=== PATIENT | male | born 1965 | race Hispanic/Latino ===

== ENCOUNTER 2017-04-15 04:42 | Inpatient (IN) | payer BC ==
[2017-04-15 04:58] VITALS: O2SAT 96
--- NOTE | 2017-04-15 05:04 | C.PDOC ---
History Of Present Illness 51 yo male, hx of etoh abuse, presents as transfer for pyschiatric admission. pt medically cleared and accepted prior to arrival. pt was depression with si. at this time denies complaints. Time Seen by Provider: 04/15/17 04:44 Chief Complaint (Nursing): Psychiatric Evaluation Past Medical History Reviewed: Historical Data, Nursing Documentation, Vital Signs Vital Signs: Last Vital Signs Temp 97.7 F 04/15/17 04:52 Pulse 86 04/15/17 04:52 Resp 14 04/15/17 04:52 BP 141/90 04/15/17 04:52 Pulse Ox 96 04/15/17 05:11 - Medical History PMH: Anxiety, Depression Family History: States: Unknown Family Hx - Social History Hx Alcohol Use: Yes Hx Substance Use: No - Immunization History Hx Tetanus Toxoid Vaccination: No Hx Influenza Vaccination: No Hx Pneumococcal Vaccination: No Review Of Systems Except As Marked, All Systems Reviewed And Found Negative. Psych: Positive for: Depression Physical Exam - Physical Exam Appears: Well, No Acute Distress, Other (drinking soda) Skin: Normal Color, Warm, Dry Eye(s): bilateral: Normal Inspection, PERRL, EOMI Nose: Normal Throat: Normal Neck: Normal Cardiovascular: Rhythm Regular Respiratory: Normal Breath Sounds Gastrointestinal/Abdominal: Normal Exam, Soft, No Tenderness, No Guarding, No Rebound Rectal: Deferred Back: Normal Inspection Extremity: Normal ROM Neurological/Psych: Oriented x3, Normal Speech, Normal Cognition, Normal Cranial Nerves, Normal Motor, Normal Sensation ED Course And Treatment O2 Sat by Pulse Oximetry: 96 Medical Decision Making Medical Decision Making: medically cleared and accepted [facility]. Disposition - Disposition Disposition: HOSPITALIZED Disposition Time: 05:03 Condition: STABLE Forms: [employer] ([place]) - Clinical Impression Clinical Impression: Major depression Decision To Admit - Pt Status Changed To: Hospital Disposition Of: Inpatient - Admit Certification Admit to Inpatient:: After my assessment, the patient will require hospitalization for at least two midnights. This is because of the severity of symptoms shown, intensity of services needed, and/or the medical risk in this patient being treated as an outpatient. - InPatient: Physician Admission Certification: I certify that this patient requires 2 or more midnights of care for the following reason:: pt wiht major dpression si, needs inpt pysch - . Bed Request Type: Psychiatry Admitting Physician: Kristy Baltazar Patient Diagnosis: Major depression
--- NOTE | 2017-04-15 07:11 | PCM.BM ---
<Ruth Richardson - Last Filed: 04/15/17 07:10> Treatment assets and liabiliti Patient Assests: adapts well, cooperative, educated, insightful, motivated, resourceful, self-reliant, ADL independent, physically healthy, good support system, negotiates basic needs, good past tx response, cognitively intact Patient Liabilities: substance abuse - Milieu Protocol Maintain good personal hygiene: daily Encourage regular showers, daily Remind patient to perform daily oral care, daily Assist patient to perform ADL's Maintain personal safety: every shift Monitor environment for contraband/sharps , other Educate patient to report safety concerns to staff (prn) Medication safety: Monitor for expected outcome, potential side effects: every shift, Assess barriers to learning: every shift, Assess readiness for medication education: every shift <Анна Jones - Last Filed: 04/16/17 10:48> Family Contact Family involvement: Family/SO is involved Family contact: Patient agrees to contact Family contact name: Juliann Liang- Family contacted how many times per week?: 2 - Goals for Treatment Patient goals for treatment: "I want to go home." Discharge/Continuing Care - Education Needs Education Needs: Patient Medication, Patient Coping Skills, Patient Placement options, Patient Community resources - Discharge Discharge Criteria: Tolerates medication w/o severe side effects, No longer exhibiting s/s of withdrawal, Reduction of target symptoms Discharge to:: Home, With Family - Treatment Team Participation Discussed with Family/SO: Yes Was Patient/Family/SO present at Treatment Team Meeting: Yes <Xiomara Best - Last Filed: 04/16/17 14:21> Treatment assets and liabiliti Patient Assests: adapts well Patient Liabilities: other - Milieu Protocol Maintain good personal hygiene: every shift Encourage regular showers, every shift Remind patient to perform daily oral care, every shift Assist patient to perform ADL's Maintain personal safety: every shift Educate patient to report safety concerns to staff, every shift Monitor environment for contraband/sharps Medication safety: Monitor for expected outcome, potential side effects: daily, Assess barriers to learning: daily, Assess readiness for medication education: daily <Warner Quinones - Last Filed: 04/16/17 17:33> - Diagnosis (1) Major depressive disorder, recurrent Status: Acute Interventions: 04/16/17 17:32 Assess/adjust medications daily and/or as needed See patient on an individual basis 7x/week to assess status of psychiatric symptoms/depression Discussed risks, benefits, side effects and alternatives of medications. (2) Alcohol use disorder Status: Acute Interventions: 04/16/17 17:32 Assess 7x/week regarding severity of withdrawal Educate regarding risks, benefits, side effects and alternatives of medications Used motivational interviewing for abstinence Use CBT for relapse prevention Medication management for withdrawal symptoms Encourage medication assisted treatment
[2017-04-15] MEDS: Multiple Vitamins Tab PO SCH (10:16)
[2017-04-15] MEDS: buPROPion 150 mg/24 Hours XL Tab PO SCH (10:17)
[2017-04-15 10:33] LABS: HEMATOCRIT 46.1 % (35.0-51.0); MEAN CELL VOLUME 88.6 fL (80.0-94.0); MEAN CORPUSCULAR HEMOGLOBIN 31.1 pg (27.0-31.0); MEAN CORPUSCULAR HGB CONC 35.1 g/dL (33.0-37.0); MEAN PLATELET VOLUME 7.1 fL (7.2-11.7); RED CELL DISTRIBUTION WIDTH 12.4 % (11.5-14.5); WHITE BLOOD COUNT 7.6 K/uL (4.8-10.8)
[2017-04-15 10:41] LABS: CHLORIDE 98 mmol/L (98-107)
[2017-04-15 10:42] LABS: SODIUM 136 mmol/L (132-148)
[2017-04-15 10:44] LABS: CARBON DIOXIDE 21 mmol/L (22-30); CHOLESTEROL 105 mg/dL (0-199); GFR AFRICAN-AMERICAN > 60
[2017-04-15 10:45] LABS: BLOOD UREA NITROGEN 16 mg/dL (9-20); CALCIUM 8.8 mg/dl (8.6-10.4); GLUCOSE,RANDOM 137 mg/dL (75-110)
[2017-04-15 11:10] LABS: FREE T4 0.99 ng/dL (0.78-2.19)
[2017-04-15 11:24] LABS: THYROID STIMULATING HORMONE 0.71 mIU/L (0.46-4.68)
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
[2017-04-16] MEDS: buPROPion 150 mg/24 Hours XL Tab PO SCH (09:52)
[2017-04-16] MEDS: Multiple Vitamins Tab PO SCH (09:52)
--- NOTE | 2017-04-16 17:36 | PCM.PYCHPN ---
Psychiatric Progress Note - Psychiatric Progress Note Patient seen today, length of contact: 15 minutes Patient Chief Complaint: I'm feeling much better Problems Identified/Issues Discussed: Patient seen. Chart reviewed. Case discussed with the staff. Issues related to illness and treatment were discussed with the patient. Reported compliant with treatment with no adverse affects. Tolerating treatment very well. Reported feeling much better with very mild withdrawal symptoms. Better mood. At the time of evaluation, patient was awake alert oriented 3, had no delusions , no auditory or visual hallucinations, no suicidal ideations or homicidal ideation. Medical Problems: None reported Diagnostic Results: Reviewed DSM 5 Symptoms Update: Improving with treatment Medication Change: No Medical Record Reviewed: Yes Mental Status Examination - Cognitive Function Orientation: Person, Place, Situation, Time Memory: Intact Attention: WNL Concentration: WNL Association: WN Fund of Knowledge: [facility] Decription of patient's judgement and insights: Fair - Mood Mood: Neutral - Affect Affect: Other (Appropriate) - Speech Speech: Appropriate - Formal Thought Process Formal Thought Process: No Impairment Psychotic Thoughts and Behaviors: None - Suicidal Ideation Suicidal Ideation: No - Homicidal Ideation Homicidal Ideation: No Goal/Treatment Plan - Goal/Treatment Plan Need for Continued Stay: Remain at risks for inpatient hospitalization, Discharge may exacerbated symptoms, Severe functional impairment Progress Toward Problem(s) and Goals/Treatment Plan: Patient education Supportive therapy Continue treatment as before. Estimated Date of D/C: 04/17/17 - Smoking Cessation Smoking Cessation Initiated: No
[2017-04-17] MEDS: Multiple Vitamins Tab PO SCH (09:27)
[2017-04-17] MEDS: buPROPion 150 mg/24 Hours XL Tab PO SCH (09:28)
[2017-04-17 09:29] VITALS: BP 128/80; PULSE 91; RESP 20; TEMP 97.2
[2017-04-17] MEDS ORDERED: Influenza Vaccine 60 mcg/0.5 mL SYR (4YR UP) IM ONE (10:30)
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
== END 2017-04-17 13:55 | disposition home or self-care (01) | DRG 885 ==
LOC: C.ER 04:42 → C.5E 05:00
PROVIDERS: ADMIT Psychiatry & Neurology Psychiatry; ATTEND Psychiatry & Neurology Psychiatry
DX: F33.2 Major depressive disorder, recurrent severe without psychotic features (principal); R45.851 Suicidal ideations; F10.239 Alcohol dependence with withdrawal, unspecified; G47.00 Insomnia, unspecified

== ENCOUNTER 2018-01-09 21:16 | Inpatient (IN) | payer BC ==
--- NOTE | 2018-01-09 21:46 | C.PDOC ---
History Of Present Illness 52 y/o male presents to ED requesting ETOH detox, states he has been drinking heavily for the past 4 days. Patient last detox in May of 2017 and states he fell off. Patient denies SI/HI, Hallucinations, chest pain, sob, nausea, vomiting or any other complaints at this time. He has never had a withdrawal seizure. Time Seen by Provider: 01/09/18 21:38 Chief Complaint (Nursing): Substance Abuse History Per: Patient History/Exam Limitations: no limitations Onset/Duration Of Symptoms: Days Current Symptoms Are (Timing): Still Present Suicide/Self Injury Attempted (Context): None Modifying Factor(s): Alcohol Past Medical History Reviewed: Historical Data, Nursing Documentation, Vital Signs Vital Signs: Last Vital Signs Temp 99 F 01/09/18 21:21 Pulse 114 H 01/09/18 21:21 Resp 20 01/09/18 21:21 BP 138/94 H 01/09/18 21:21 Pulse Ox 96 01/09/18 22:53 - Medical History PMH: Anxiety, Depression Surgical History: No Surg Hx Family History: States: No Known Family Hx - Social History Hx Alcohol Use: Yes Hx Substance Use: No - Immunization History Hx Tetanus Toxoid Vaccination: No Hx Influenza Vaccination: No Hx Pneumococcal Vaccination: No Review Of Systems Constitutional: Negative for: Fever, Chills Cardiovascular: Negative for: Chest Pain Respiratory: Negative for: Shortness of Breath Gastrointestinal: Negative for: Nausea, Vomiting Skin: Negative for: Rash Psych: Positive for: Other (ETOH intoxication). Negative for: Anxiety, Suicidal ideation, Withdrawal Physical Exam - Physical Exam Appears: Non-toxic, No Acute Distress Skin: Warm, Dry, No Rash Head: Atraumatic, Normacephalic Eye(s): bilateral: Normal Inspection Oral Mucosa: Moist Neck: Normal ROM, Supple Cardiovascular: Rhythm Regular, Other (Tachycardic) Respiratory: Normal Breath Sounds, No Rales, No Rhonchi, No Wheezing Gastrointestinal/Abdominal: Soft, No Tenderness, No Guarding, No Rebound Extremity: Normal ROM, No Pedal Edema, Capillary Refill (<2 seconds) Neurological/Psych: Oriented x3, Normal Speech, Normal Cognition ED Course And Treatment - Laboratory Results Result Diagrams: 01/09/18 21:50 01/09/18 21:50 Lab Interpretation: No Acute Changes Interpretation Of Abnormal: ETOH 294 O2 Sat by Pulse Oximetry: 96 (RA) Pulse Ox Interpretation: Normal Progress Note: Patient is medically cleared for detox admission. Disposition - Disposition Disposition: HOSPITALIZED Disposition Time: 23:45 Condition: STABLE - POA Present On Arrival: None - Clinical Impression Clinical Impression: Alcohol dependence - Scribe Statement The provider has reviewed the documentation as recorded by the Celsaibsofia Ochoa All medical record entries made by the Celsaibsofia were at my direction and personally dictated by me. I have reviewed the chart and agree that the record accurately reflects my personal performance of the history, physical exam, medical decision making, and the department course for this patient. I have also personally directed, reviewed, and agree with the discharge instructions and disposition.
[2018-01-09 22:00] LABS: BARBITURATES, UR NEGATIVE (NEGATIVE); BENZODIAZEPINES, UR NEGATIVE (NEGATIVE); OPIATES, UR NEGATIVE (NEGATIVE); PHENCYCLIDINE, UR NEGATIVE (NEGATIVE)
[2018-01-09 22:03] LABS: BASO # 0.2 K/uL (0.0-0.2); BASO % 2.1 % (0.0-2.0); EOS % 0.4 % (0.0-4.0); HEMOGLOBIN 15.8 g/dL (12.0-18.0); LYMPH # 3.4 K/uL (1.0-4.3); LYMPH % 29.8 % (20.0-40.0); MEAN CELL VOLUME 87.8 fL (80.0-94.0); MEAN CORPUSCULAR HEMOGLOBIN 30.5 pg (27.0-31.0); MEAN CORPUSCULAR HGB CONC 34.8 g/dL (33.0-37.0); MEAN PLATELET VOLUME 6.6 fL (7.2-11.7); MONO # 0.7 K/uL (0.0-0.8); MONO % 6.2 % (0.0-10.0); NEUT % 61.5 % (50.0-75.0); NRBC % 0.1 % (0.0-2.0); RBC 5.18 Mil/uL (4.40-5.90); RED CELL DISTRIBUTION WIDTH 12.7 % (11.5-14.5); WHITE BLOOD COUNT 11.3 K/uL (4.8-10.8)
[2018-01-09 22:06] LABS: ALB/GLOB RATIO 1.3 (1.0-2.1); ALBUMIN 4.5 g/dL (3.5-5.0); ALT/SGPT 76 U/L (21-72); AST/SGOT 61 U/L (17-59); BLOOD UREA NITROGEN 11 mg/dL (9-20); CALCIUM 8.5 mg/dl (8.6-10.4); GFR AFRICAN-AMERICAN > 60; GFR NON-AFRICAN AMERICAN > 60
[2018-01-09 22:08] LABS: SQUAMOUS EPITHIAL < 1 /hpf (0-5); URINE BACTERIA OCC (<OCC); URINE BILIRUBIN NEGATIVE (NEGATIVE); URINE BLOOD NEGATIVE (NEGATIVE); URINE CLARITY Clear (Clear); URINE COLOR Yellow (YELLOW); URINE GLUCOSE (UA) NORMAL (Normal); URINE LEUKOCYTE ESTERASE NEG Leu/uL (Negative); URINE PROTEIN 1+ mg/dL (NEGATIVE); URINE UROBILINOGEN NORMAL mg/dL (0.2-1.0)
--- NOTE | 2018-01-10 00:49 | PCM.BM ---
<Suzanne Gramajo - Last Filed: 01/10/18 00:48> Treatment Plan Problems - Problems identified on initial assessmt Ineffective Coing Skills Date Initiated: 01/10/18 Time Initiated: 00:49 Assessment reference: NA Status: Active Treatment assets and liabiliti Patient Assests: adapts well, ADL independent, physically healthy Patient Liabilities: substance abuse - Milieu Protocol Maintain good personal hygiene: daily Encourage regular showers, daily Remind patient to perform daily oral care, other Assist patient to perform ADL's Maintain personal safety: every shift Educate patient to report safety concerns to staff, every shift Monitor environment for contraband/sharps Medication safety: Monitor for expected outcome, potential side effects: every shift, Assess barriers to learning: every shift, Assess readiness for medication education: every shift <Delia Harris - Last Filed: 01/10/18 13:21> - Diagnosis (1) Alcohol dependence Status: Acute Interventions: 01/10/18 13:22 * Assess 7x/week regarding severity of withdrawal * Educate regarding risks, benefits, side effects and alternatives of medications * Use Motivational Interviewing for abstinence * Use CBT for relapse prevention * Medication management for withdrawal symptoms * Encourage medication assisted treatment * <Elis Castillo - Last Filed: 01/11/18 13:56> Family Contact Family involvement: Family/SO is involved Family contact name: Family contacted how many times per week?: 3 - Goals for Treatment Patient goals for treatment: Complete detox and return to [facility] partial hospitalization program. Discharge/Continuing Care - Education Needs Education Needs: Patient Medication, Patient Diagnosis/Disease Process, Patient Coping Skills, Patient Anger Management skills, Patient Placement options, Patient Community resources, Significant Other Medication, Significant Other Diagnosis/Disease Process, Significant Other Placement options, Significant Other Community resources - Discharge Discharge Criteria: No longer exhibiting s/s of withdrawal, Reduction of target symptoms Discharge to:: Home, With Family - Treatment Team Participation Patient/Family/SO Statement: 01/11/18 13:56 "I wanna go back to [facility]. I like it there." Discussed with Family/SO: Yes Was Patient/Family/SO present at Treatment Team Meeting: Yes
[2018-01-10] MEDS: Multiple Vitamins Tab PO SCH (09:37)
--- NOTE | 2018-01-10 09:49 | PCM.PSYCH ---
Initial Psychiatric Evaluation - Initial Psychiatric Evaluation Type of Admission: Voluntary Legal Status: Capacity Chief Complaint (in patient's own words): "Alcohol" History of Present Illness and Precipitating Events: This is a 52 year-old male with psych history of depression and alcohol use disorder. He reported he had relapsed on Alcohol 1.5 weeks ago and he start drinking about 2 pints or more on daily basis. He reported that he need to drink in the morning to improve his tremors. He has on going wdw symptoms. Denies drug use. He has a long hx of alcohol use, since teens He is not depressed while on wellbutrin but he had been in the past and even attempted suicide once by jumping into a river. He had psych admissions with depression. Currently stable. 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 He reported good social support from his , and looking forward to achieving his goals. Additionally, he reported that he has had good contact with his previous SW, sponsor at [facility] and at [facility]. No medical history No family posych hx Current Medications: Active Medications Generic Name Dose Route Start Last Admin Trade Name Freq PRN Reason Stop Dose Admin Chlordiazepoxide 25 mg 01/10/18 10:00 01/10/18 09:40 Librium PO 01/15/18 09:59 25 mg Q6 LUZ MARIA Administration Taper Chlordiazepoxide 25 mg 01/10/18 08:17 01/10/18 08:33 Librium PO 25 mg Q4H PRN Administration Alcohol Withdrawal Clonidine HCl 0.1 mg 01/10/18 00:44 01/10/18 09:40 Catapres PO 0.1 mg Q8H PRN Administration Withdrawal Symptoms Folic Acid 1 mg 01/10/18 10:00 01/10/18 09:37 Folic Acid PO 1 mg DAILY LUZ MARIA Administration Hydroxyzine HCl 25 mg 01/10/18 00:45 01/10/18 01:13 Atarax PO 25 mg Q6H PRN Administration Agitation Multivitamins 1 tab 01/10/18 10:00 01/10/18 09:37 Hexavitamin PO 1 tab DAILY LUZ MARIA Administration Thiamine HCl 100 mg 01/10/18 10:00 01/10/18 09:37 Vitamin B1 Tab PO 100 mg DAILY LUZ MARIA Administration Trazodone HCl 100 mg 06/28/18 22:00 Desyrel PO HS PRN Insomnia Past Psychiatric History - Past Psychiatric History Previous Treatment History: Inpatient Pertinent Medical Hx (Current Medical&Sleep Prob, Allergies): Allergies Allergy/AdvReac Type Severity Reaction Status Date / Time No Known Allergies Allergy Unverified 04/15/17 04:58 buPROPion SR [Wellbutrin] 100 mg PO DAILY #30 tab 04/17/17 Review of Systems - Psychiatric Psychiatric: Abnormal Sleep Pattern, Anxiety. absent: Hallucinations, Hopelessness, Paranoia, Suicidal Ideation Mental Status Examination - Personal Presentation Personal Presentation: Looks older than stated age - Affect Affect: Constricted - Motor Activity Motor Activity: Calm - Reliability in Providing Information Reliability in Providing Information: Good - Speech Speech: Organized - Mood Mood: Anxious - Formal Thought Process Formal Thought Process: No Impairment - Cognitive Functions Orientation: Person, Place, Situation, Time Sensorium: Alert Attention/Concentration: Attentive Estimate of Intelligence: Average Judgement: Intact, as evidence by: Insight regarding need for hospitalization Memory: Recent intact, as evidence by: Ability to recall events of the day, Remote intact, as evidenced by: Abilit to recall sig. life events - Risk Risk: Withdrawal, Diminished functioning - Strength & Assets Inventory Strength & Assets Inventory: Cooperative - Limitations Limitations: Other DSM 5 DX - DSM 5 DSM 5 Diagnosis: Alcohol withdrawal, uncomplicated Alcohol use disorder, severe MDD, Recurrent, in remission - Recommended/Plan of Treatment Treatment Recommendations and Plan of Treatment: Librium taper folic acid Thiamine MV Continue Wellbutrin XL 150 mg po daily in the am. Medication benefits, s/e discussed with the pt. He verbalized understanding and in agreement to continue treatment plan. Therapy in milieu Individual and group psychotherapy. Supportive therapy with CBT component provided. Will f/u with lab results 33 min Projected ELOS: 5-6 days Prognosis: Good with treatment - Smoking Cessation Smoking Cessation Initiated: Yes
[2018-01-10] MEDS ORDERED: Aluminum Hydroxide/Magnesium Hydroxide Susp (30 mL) PO PRN (09:50)
[2018-01-10] MEDS: buPROPion 150 mg/24 Hours XL Tab PO SCH (10:13)
[2018-01-11] MEDS: buPROPion 150 mg/24 Hours XL Tab PO SCH (09:26)
[2018-01-11] MEDS: Multiple Vitamins Tab PO SCH (09:26)
--- NOTE | 2018-01-11 14:53 | PCM.PYCHPN ---
Psychiatric Progress Note - Psychiatric Progress Note Patient seen today, length of contact: 16 min Patient Chief Complaint: "I feel calmer" Problems Identified/Issues Discussed: The pt is seen, chart reviewed, case discussed with staff. Support and psychoeducation given, CBT and IA used briefly No new symptoms reported, improving slowly and needs more time No SEs from medications, risks discussed. After care discussed Medication Change: Yes (detox changes daily) Medical Record Reviewed: Yes Mental Status Examination - Cognitive Function Orientation: Person, Place, Situation, Time Memory: Intact Attention: WNL Concentration: WNL Association: WNL Fund of Knowledge: WNL - Mood Mood: Anxious - Affect Affect: Constricted - Speech Speech: Appropriate - Formal Thought Process Formal Thought Process: No Impairment - Suicidal Ideation Suicidal Ideation: No - Homicidal Ideation Homicidal Ideation: No Goal/Treatment Plan - Goal/Treatment Plan Need for Continued Stay: Discharge may exacerbated symptoms, Severe functional impairment Progress Toward Problem(s) and Goals/Treatment Plan: Librium taper folic acid Thiamine MV Continue Wellbutrin XL 300 mg po daily in the am. Medication benefits, s/e discussed with the pt. He verbalized understanding and in agreement to continue treatment plan. Therapy in milieu Individual and group psychotherapy. Supportive therapy with CBT component provided. Will f/u with lab results Estimated Date of D/C: 01/14/18
[2018-01-12] MEDS: buPROPion 150 mg/24 Hours XL Tab PO SCH (09:26)
[2018-01-12] MEDS: Multiple Vitamins Tab PO SCH (09:27)
--- NOTE | 2018-01-12 10:45 | PCM.PYCHPN ---
Psychiatric Progress Note - Psychiatric Progress Note Patient seen today, length of contact: 16 min Patient Chief Complaint: "My withdrawal symptoms are getting better" Problems Identified/Issues Discussed: The pt is seen, chart reviewed, case discussed with staff. The pt is compliant with medications and reports no side-effects. Symptoms are improving but needs more time to stabilize. After care discussed, support and psychoeducation given. Medication Change: Yes (detox changes daily) Medical Record Reviewed: Yes Mental Status Examination - Cognitive Function Orientation: Person, Place, Situation, Time Memory: Intact Attention: WNL Concentration: WNL Association: WNL Fund of Knowledge: [facility] Decription of patient's judgement and insights: fair/fair - Mood Mood: Depressed, Anxious - Affect Affect: Constricted - Speech Speech: Appropriate - Formal Thought Process Formal Thought Process: No Impairment Psychotic Thoughts and Behaviors: denied - Suicidal Ideation Suicidal Ideation: No Plan: denied - Homicidal Ideation Homicidal Ideation: No Plan: denied Goal/Treatment Plan - Goal/Treatment Plan Need for Continued Stay: Discharge may exacerbated symptoms, Severe functional impairment Progress Toward Problem(s) and Goals/Treatment Plan: Continue medications Support and psychoeducation daily Attend groups and activities daily After care planning by MAR Estimated Date of D/C: 01/14/18
[2018-01-13] MEDS: buPROPion 150 mg/24 Hours XL Tab PO SCH (09:43)
[2018-01-13] MEDS: Multiple Vitamins Tab PO SCH (09:43)
--- NOTE | 2018-01-13 09:58 | PCM.PYCHPN ---
Psychiatric Progress Note - Psychiatric Progress Note Patient seen today, length of contact: 16 min Patient Chief Complaint: "I'M FEELING BETTER" Problems Identified/Issues Discussed: The pt is seen, chart reviewed, case discussed with staff. He reported he is feeling better. The pt is compliant with medications and reports no side-effects. Symptoms are improving but needs more time to stabilize. After care discussed, support and psychoeducation given. DSM 5 Symptoms Update: Alcohol use disorder, severe, dependence Alcohol withdrawal Medication Change: Yes (detox changes daily) Medical Record Reviewed: Yes Mental Status Examination - Cognitive Function Orientation: Person, Place, Situation, Time Memory: Intact Attention: WNL Concentration: WNL Association: WNL Fund of Knowledge: [facility] Decription of patient's judgement and insights: improved/good - Mood Mood: Anxious - Affect Affect: Constricted - Speech Speech: Appropriate - Formal Thought Process Formal Thought Process: No Impairment Psychotic Thoughts and Behaviors: denied - Suicidal Ideation Suicidal Ideation: No Plan: denied - Homicidal Ideation Homicidal Ideation: No Plan: denied Goal/Treatment Plan - Goal/Treatment Plan Need for Continued Stay: Discharge may exacerbated symptoms, Severe functional impairment Progress Toward Problem(s) and Goals/Treatment Plan: Continue medications Support and psychoeducation daily Attend groups and activities daily After care planning by MAR Estimated Date of D/C: 01/14/18
--- NOTE | 2018-01-14 08:34 | PCM.PYCHDC ---
Mental Status Examination - Mental Status Examination Orientation: Person, Place, Situation, Time Memory: Intact Mood: Anxious Affect: Constricted Speech: Appropriate Attention: WNL Concentration: WNL Association: WNL Fund of Knowledge: WNL Formal Thought Process: No Impairment Suicidal Ideation: No Current Homicidal Ideation?: No Discharge Summary - Discharge Note Reason for Hospitalization: Alcohol detox Consultations:: List each consultation separately and include: 1. Reason for request. 2. Findings. 3. Follow-up Summary of Hospital Course include:: 1. Description of specific treatment plan utilized for patients during their course of treatmen. 2. Summarize the time- course for resolution of acute symptoms and/or regressed behaviors. 3. Describe issues identified and worked on during hospitalization. 4. Describe medication utilized. 5. Describe medical problems identified and treated. 6. Reassessment of suicide risk Summary of Hospital Course: Pt is seen, chart reviewed and case discussed. On admission: This is a 52 year-old male with psych history of depression and alcohol use disorder. He reported he had relapsed on Alcohol 1.5 weeks ago and he start drinking about 2 pints or more on daily basis. He reported that he need to drink in the morning to improve his tremors. He has on going wdw symptoms. Denies drug use. He has a long hx of alcohol use, since teens He is not depressed while on wellbutrin but he had been in the past and even attempted suicide once by jumping into a river. He had psych admissions with depression. Currently stable. 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 He reported good social support from his , and looking forward to achieving his goals. Additionally, he reported that he has had good contact with his previous , sponsor at [facility] and at [facility]. No medical history No family posych hx Hospital course: The pt was admitted and started on treatment with psychotherapy, support, psychoeducation and medications. [place] and CBT used. The pt attended groups and activities, as well as milieu therapy. All the risks and benefits of medications are discussed and the patient understood and agreed. The pt improved with the treatments provided. After care discussed with the patient. He will go to [facility]. - Final Diagnosis (DSM 5) Condition upon Discharge: STABLE DSM 5: Alcohol withdrawal, uncomplicated Alcohol use disorder, severe MDD, Recurrent, in remission Disposition: HOME/ ROUTINE Follow-up Treatment Plan: Continue below medications after discharge. Follow after care plan as discussed. Use relapse prevention skills Return to ER or call 911 if suicidal, homicidal or symptoms relapse. Stay away from stress, alcohol and drugs. See primary doctor regularly and get labs. Prescriptions/Medication Reconciliation: buPROPion XL [Wellbutrin XL] 300 mg PO DAILY #30 t24 hydrOXYzine HCl [Atarax] 25 mg PO BID PRN #60 tab PRN Reason: Agitation traZODone [Desyrel] 100 mg PO HS PRN #30 tab PRN Reason: Insomnia - Smoking Cessation Smoking Cessation Medication prescribed: No
[2018-01-14] MEDS: buPROPion 150 mg/24 Hours XL Tab PO SCH (09:07)
[2018-01-14] MEDS: Multiple Vitamins Tab PO SCH (09:08)
[2018-01-14 10:26] VITALS: BP 120/77; PULSE 84; RESP 20; TEMP 98.4; O2SAT 97
== END 2018-01-14 10:15 | disposition home or self-care (01) | DRG 897 ==
LOC: C.ER 21:16 → C.7D 01-10 00:23
PROC: HZ2ZZZZ Detoxification Services for Substance Abuse Treatment (ICD-10-PCS; principal; 2018-01-10)
DX: F10.230 Alcohol dependence with withdrawal, uncomplicated (principal); F33.40 Major depressive disorder, recurrent, in remission, unspecified; F10.220 Alcohol dependence with intoxication, uncomplicated; Y90.8 Blood alcohol level of 240 mg/100 ml or more